=== PATIENT | female | born 1990 | race Asian ===

== ENCOUNTER 2017-12-19 17:59 | Emergency (ER) | payer MEDICAID ==
[~2017-12-19] VITALS: Ht 172.7 cm; Wt 68.0 kg
[2017-12-19 18:09] VITALS: BP 109/79
[2017-12-19] MEDS ORDERED: Phenazopyridine 200mg tab ORAL ONE (18:15)
[2017-12-19 18:42] LABS: APPEARANCE,URINE CLEAR; BILIRUBIN, URINE 1+ (NEGATIVE); COLOR,URINE BROWN; GLUCOSE, URINE (UA) NEGATIVE (NEGATIVE); KETONES,URINE NEGATIVE (NEGATIVE); LEUKOCYTE ESTERASE ,URINE 2+ (NEGATIVE); NITRITE,URINE POSITIVE (NEGATIVE); PH,URINE 7 (4.5-8.0); PROTEIN,URINE NEGATIVE (NEGATIVE); UROBILINOGEN,URINE 4 MG/DL (0.0-1.0)
--- NOTE | 2017-12-19 19:05 | Emergency Room Report ---
History of Present Illness General Chief Complaint: Female Urogenital Problems Source: Patient Present Illness HPI 27 YO Female presents to the ED with c/os 4/10 in severity Dysuria x 3 days. She states she has frequent UTI's last one was in dec. They are most commonly after intercourse. Denies vaginal d/c , rashes, tenderness, swollen lymph nodes , or joint pain. denies . Denies fevers or chills. She denies abdominal pain/tenderness, N/V/C/D, or external vaginal lesions. Denies recent antibiotic use. Denies hematuria. Denies low back pain/tenderness. Allergies: Coded Allergies: No Known Allergies (Unverified , 12/19/17) Patient History Past Medical History: see triage record Past Surgical History: none Pertinent Family History: none Last Menstrual Period: IUD Now: No Nursing Documentation-PMH Past Medical History: No Stated History Review of Systems All Other Systems: negative except mentioned in HPI Physical Exam Vital Signs Date Time Temp Pulse Resp B/P (MAP) Pulse Ox O2 Delivery O2 Flow Rate FiO2 12/19/17 18:04 98.4 72 18 109/79 98 Room Air 98.4 Sp02 EP Interpretation: reviewed, normal General Appearance: no apparent distress, alert, GCS 15, non-toxic Head: normocephalic, atraumatic ENT: hearing grossly normal, normal voice Neck: full range of motion Respiratory: lungs clear, normal breath sounds, speaking full sentences Cardiovascular #1: regular rate, rhythm Gastrointestinal: normal bowel sounds, non tender, soft, non-distended, no guarding Genitourinary: normal inspection, no CVA tenderness Musculoskeletal: back normal, gait/station normal, normal range of motion, non- tender Neurologic: alert, oriented x3, responsive, motor strength/tone normal, sensory intact, normal gait, speech normal, grossly normal Psychiatric: judgement/insight normal Skin: normal color, no rash, warm/dry, well hydrated Lymphatic: no adenopathy Medical Decision Making PA Attestation Dr. Steinberg is my supervising Physician whom patient management has been discussed with. Diagnostic Impression: Primary Impression: Urinary tract infection Qualified Codes: N30.01 - Acute cystitis with hematuria ER Course 27 YO Female presents to the ED with c/os 4/10 in severity Dysuria x 3 days. She states she has frequent UTI's last one was in dec. They are most commonly after intercourse. Denies vaginal d/c , rashes, tenderness, swollen lymph nodes , or joint pain. denies . Denies fevers or chills. She denies abdominal pain/tenderness, N/V/C/D, or external vaginal lesions. Denies recent antibiotic use. Denies hematuria. Denies low back pain/tenderness. Ddx considered but are not limited to UTi , Pyelo, STI, Stone, Cystitis Vital signs: are WNL, pt. is afebrile H&PE are most consistent with UTI ORDERS: - UA labs are attached - Nitrite positive ED INTERVENTIONS: -Pyridium PO DISCHARGE: At this time pt. is stable for d/c to home. Will provide printed patient care instructions, and any necessary prescriptions. Care plan and follow up instructions have been discussed with the patient prior to discharge. Labs Test 12/19/17 18:18 Urine Color Brown Urine Appearance Clear Urine pH 7 (4.5-8.0) Urine Specific [place] 1.005 (1.005-1.035) Urine Protein Negative (NEGATIVE) Urine Glucose (UA) Negative (NEGATIVE) Urine Ketones Negative (NEGATIVE) Urine Occult Blood 4+ (NEGATIVE) Urine Nitrite Positive (NEGATIVE) Urine Bilirubin 1+ (NEGATIVE) Urine Ictotest Negative Urine Urobilinogen 4 MG/DL (0.0-1.0) Urine Leukocyte Esterase 2+ (NEGATIVE) Urine RBC 10-15 /HPF (0 - 2) Urine WBC 5-10 /HPF (0 - 2) Urine Squamous Epithelial Cells Few /LPF (NONE/OCC) Urine Amorphous Sediment Few /LPF (NONE) Urine Bacteria Few /HPF (NONE) Last Vital Signs Date Time Temp Pulse Resp B/P (MAP) Pulse Ox O2 Delivery O2 Flow Rate FiO2 12/19/17 18:09 98.4 78 18 109/79 98 Room Air 98.4 Disposition: HOME, SELF-CARE Condition: Stable Scripts Phenazopyridine Hcl* (PYRIDIUM*) 100 Mg Tablet 100 MG ORAL THREE TIMES A DAY for 3 Days, #9 TAB Prov: Alyssa Lin 12/19/17 Nitrofurantoin Monohyd/M-Cryst* (MACROBID 100 MG*) 100 Mg Capsule 100 MG ORAL EVERY 12 HOURS for 5 Days, #10 CAP Prov: Alyssa Lin 12/19/17 Patient Instructions: Urinary Tract Infection Additional Instructions: Take medications as directed. Follow up with a Primary Care Provider in 3-5 days, even if your symptoms have resolved. --Please review list of primary care clinics, if you do not already have a primary care provider Return sooner to ED if new symptoms occur, or current symptoms become worse. - Please note that this Emergency Department Report was dictated using [employer] and outreach manager technology software, occasionally this can lead to erroneous entry secondary to interpretation by the dictation equipment. Alyssa Lin Dec 19, 2017 19:05
[2017-12-19] MEDS ORDERED: PHENAZOPYRIDIN100 MG ORAL (19:08)
[2017-12-19] MEDS ORDERED: NITROFURANTOIN100 M2 ORAL (19:08)
[2017-12-19 19:29] VITALS: BP 109/79
== END 2017-12-19 23:33 | disposition home or self-care (01) ==
LOC: EMR 19:23
DX: N39.0 Urinary tract infection, site not specified (principal)
CPT/HCPCS: 81003; 99284